=== PATIENT | female | born 1965 | race Asian ===

== ENCOUNTER → 2017-02-01 | Outpatient (CLI) | payer OTHER ==
[~2017-02-01] MED LIST: CALC200T37 PO; CHOL500014 PO; ESOM40CA PO; MISO200T4 PO; MULT-94 PO; NORE5TAB PO; [UNRECOGNIZED DRUG - OTHER] PO
== END | disposition home or self-care (01) ==
LOC: CFH 12:37
PROVIDERS: ATTEND Obstetrics & Gynecology
DX: Z13.820 Encounter for screening for osteoporosis (principal); N63 Unspecified lump in breast; M85.80 Other specified disorders of bone density and structure, unspecified site; M81.0 Age-related osteoporosis without current pathological fracture
CPT/HCPCS: 76641; 77080; G0204

== ENCOUNTER → 2017-08-16 | Outpatient (CLI) | payer OTHER ==
[~2017-08-16] MED LIST changes: +CALC-680 PO; -CALC200T37 PO; -CHOL500014 PO; +CHOL500045 PO
== END | disposition home or self-care (01) ==
LOC: CFH 08:35
PROVIDERS: ATTEND Internal Medicine
DX: K80.20 Calculus of gallbladder without cholecystitis without obstruction (principal); B17.0 Acute delta-(super) infection of hepatitis B carrier
CPT/HCPCS: 76700

== ENCOUNTER → 2019-08-26 | Outpatient (CLI) | payer OTHER | END | disposition home or self-care (01) | LOC: CFH 13:18 | PROVIDERS: ATTEND Obstetrics & Gynecology | DX: Z12.31 Encounter for screening mammogram for malignant neoplasm of breast (principal) | CPT/HCPCS: 77063; 77067 ==

== ENCOUNTER 2019-08-28 12:43 | Outpatient (CLI) | payer OTHER | END 2019-08-28 23:59 | disposition home or self-care (01) | LOC: CFH 12:43 | PROVIDERS: ATTEND Obstetrics & Gynecology | DX: N63.14 Unspecified lump in the right breast, lower inner quadrant (principal) | CPT/HCPCS: 76642; 77065; G0279 ==